=== PATIENT | male | born 1965 | race Two or more races ===

== ENCOUNTER 2020-03-19 06:14 | Day surgery (SDC) | payer BC, SELFPAY ==
[2020-03-12 12:02] LABS: BASOPHILS % (AUTO) 0.8 % (0-1); EOSINOPHILS # (AUTO) 0.1 X10'3 (0-0.9); EOSINOPHILS % (AUTO) 2.3 % (0-6); LYMPHOCYTES # (AUTO) 2.1 X10'3 (1.1-4.8); LYMPHOCYTES % (AUTO) 33.7 % (21-51); MEAN CORPUSCULAR HGB CONC 34.1 g/dL (33.0-36.5); MEAN CORPUSCULAR VOLUME 93.9 FL (78-98); MEAN PLATELET VOLUME 7.6 FL (7.4-10.4); MONOCYTES # (AUTO) 0.6 X10'3 (0-0.9); MONOCYTES % (AUTO) 10.3 % (2-12); NEUTROPHILS # (AUTO) 3.3 X10'3 (1.8-7.7); NEUTROPHILS % (AUTO) 52.9 % (42-75); PRE OP HEMATOCRIT 43.9 % (42.0-52.0); PRE OP PLATELET COUNT 269 X10'3 (140-440); RED BLOOD COUNT 4.67 X10'6 (4.70-6.10); RED CELL DISTRIBUTION WIDTH 14.1 % (11.5-14.5)
[2020-03-12 12:08] LABS: PRE OP PROTIME 10.2 SECONDS (9.0-12.0)
[2020-03-12 12:09] LABS: ALBUMIN 3.7 G/DL (3.4-5.0); ALBUMIN/GLOBULIN RATIO 1.1 (1.1-1.5); ALKALINE PHOSPHATASE 73 IU/L (46-116); BLOOD UREA NITROGEN 12 MG/DL (7-18); BUN/CREATININE RATIO 9.1 (5.4-32.0); CALCIUM 8.4 MG/DL (8.5-10.1); CHLORIDE 106 MMOL/L (99-107); CREATININE 1.32 MG/DL (0.60-1.10); PRE OP ALT 41 U/L (30-65); PRE OP ANION GAP 9 (8-16); PRE OP AST 16 U/L (10-37); PRE OP BILIRUB, TOTAL 0.8 MG/DL (0.0-1.0); PRE OP GLUCOSE 110 MG/DL (70-104); PRE OP POTASSIUM 3.8 MMOL/L (3.4-5.1); PRE OP SODIUM 142 MMOL/L (135-145); TOTAL CARBON DIOXIDE 27.2 MMOL/L (24-32); TOTAL PROTEIN 7.2 G/DL (6.4-8.2); eGFR 56 ML/MIN
[~2020-03-19] VITALS: Ht 177.8 cm; Wt 129.2 kg
[2020-03-19] VITALS (18 sets, daily range): BP systolic 141–199; BP diastolic 81–116
[~2020-03-19 06:14] MED LIST: ATOR20TA66 PO; ENAL1TAB10 PO; LEVO175T7 PO; METF-436 PO; UBID50TA3 PO; VITAMIN D; famotidine 20mg tablet PO ONE; oxymetazoline 15 ML nasal spray NS PRN; ringers solution, lacted 1,000 ML IV SCH
[2020-03-19] MEDS ORDERED: methylPREDNISolone acetate 80mg/ml inj**IM only ONE (06:43)
[2020-03-19] MEDS ORDERED: LIDOcaine 1% W/epiNEPHrine 1:100,000 20ml vial ONE (06:43)
[2020-03-19] MEDS ORDERED: BUPIVAcaine 0.5% W/EPI /PF 30ml vial ONE (06:43)
[2020-03-19] MEDS ORDERED: oxymetazoline 15 ML nasal spray NS ONE (06:43)
[2020-03-19] MEDS ORDERED: cefTAZidime 1gm inj ONE (06:43)
[2020-03-19] MEDS ORDERED: mupirocin 2% ointment 22GM ONE (06:43)
[2020-03-19] MEDS ORDERED: cocaine 4% topical solution 4ml bottle ONE (06:57)
[2020-03-19] MEDS ORDERED: HYDR-4069 PO (07:28)
[2020-03-19] MEDS ORDERED: sevoflurane 250ml liquid IH ONE (08:08)
[2020-03-19] MEDS ORDERED: midazolam 2 mg/2 ml injection ONE (08:15)
[2020-03-19] MEDS ORDERED: fentaNYL/PF 50MCG/1 ML 2ML syringe ONE (08:15)
[2020-03-19] MEDS ORDERED: propofol inj 20 ML IV ONE (08:38)
[2020-03-19] MEDS ORDERED: LIDOcaine 2% (20mg/ml) 5ml vial ONE (08:38)
[2020-03-19] MEDS ORDERED: dexamethasone sod phosphate 4mg/ml inj. ONE (08:38)
[2020-03-19] MEDS ORDERED: ondansetron/PF 4mg/2ml inj ONE (08:43)
[2020-03-19] MEDS ORDERED: ringers solution, lacted 1,000 ML IV SCH (08:46)
[2020-03-19] MEDS ORDERED: ondansetron/PF 4mg/2ml inj IV PRN (08:50)
[2020-03-19] MEDS ORDERED: hydrALAZINE 20mg/ml inj. IV PRN (08:50)
[2020-03-19] MEDS ORDERED: morphine 2 MG/ML inj. syringe IV PRN (08:50)
[2020-03-19] MEDS ORDERED: acetaminophen 1,000mg/100ml IV 100 ML IV PRN (08:50)
[2020-03-19] MEDS ORDERED: meperidine/PF 25mg/ml syringe IV PRN ×3 (08:50)
[2020-03-19] MEDS ORDERED: morphine 4 MG/ML inj SYRINge IV PRN (08:50)
--- NOTE | 2020-03-19 09:52 | NUR ---
RECEIVED FROM OR VIA [facility] ACCOMPANIED BY ANESTHESIOLOGIST DR JONES, REPORT GIVEN. PT DROWSY BUT AROUSES EASILY AND DENIES PAIN AT THIS TIME. COTTENOIDS TO BILATERAL NARES WITH SCANT SS DRAINAGE. 20 GAUGE PIV L FA PATENT AND RUNNING LR AT 100 ML/HR. VSS, SKIN PINK AND WARM, ABD SOFT, GOOD CAP REFILL, RESTING COMFORTABLY.
--- NOTE | 2020-03-19 10:34 | NUR ---
BP 168/98 LABETALOL 5 MG GIVEN
[2020-03-19] MEDS: labetalol 20mg/4ml (5mg/ml) syringe IV PRN ×3 (10:36→11:04)
[2020-03-19] MEDS ORDERED: oxymetazoline 15 ML nasal spray NS SCH (10:58)
[2020-03-19] MEDS ORDERED: mupirocin 2% nasal ointment 1gm UD NS SCH (10:59)
[2020-03-19] MEDS ORDERED: salt irrigation nasal spray 45 ML SPRAY NS PRN (11:00)
--- NOTE | 2020-03-19 12:32 | NUR ---
PT ALERT AND ORIENTED AND DENIES PAIN AT THIS TIME. MUSTACHE DRESSING TO BILATERAL NARES WITH SCANT SS DRAINAGE. 20 GAUGE PIV L FA DC/D CATH TIP INTACT. VSS, SKIN PINK AND WARM, ABD SOFT, GOOD CAP REFILL. ABLE TO TOLERATE FLUIDS, DRESS SELF, AMBULATE AND VOID. DISCHARGE INSTRUCTIONS GIVEN AND PT VERBALIZED UNDERSTANDING. TRANSFERRED VIA WHEELCHAIR TO SIG OTHER IN PRIVATE VEHICLE TO HOME.
== END 2020-03-19 12:32 | disposition home or self-care (01) ==
LOC: PAS 06:14
PROVIDERS: ATTEND Otolaryngology
DX: J34.2 Deviated nasal septum (principal); J34.3 Hypertrophy of nasal turbinates; D49.2 Neoplasm of unspecified behavior of bone, soft tissue, and skin; L57.0 Actinic keratosis; J34.89 Other specified disorders of nose and nasal sinuses; I10 Essential (primary) hypertension; E03.9 Hypothyroidism, unspecified; E11.9 Type 2 diabetes mellitus without complications; E66.9 Obesity, unspecified; Z68.41 Body mass index [BMI] 40.0-44.9, adult; Z11.59 Encounter for screening for other viral diseases; Z79.899 Other long term (current) drug therapy; Z79.01 Long term (current) use of anticoagulants; Z72.89 Other problems related to lifestyle; Z98.890 Other specified postprocedural states
CPT/HCPCS: 14060; 30140; 30520; 36415; 80053; 82948; 85025; 85576; 85610; 85730; 87635; 93005; A6402; C9250; C9803; J0360; J0713; J1040; J1100; J2001; J2250; J2405; J2704; J3010; J7120; U0003; A4618; A7000; J3490